=== PATIENT | male | born 1990 | race Caucasian/White ===

== ENCOUNTER 2023-09-28 12:26 | Emergency (ER) | payer OTHER, SELFPAY ==
[~2023-09-28] VITALS: Ht 175.3 cm; Wt 80.6 kg
[2023-09-28] MEDS ORDERED: IBUP-1022 PO (15:31)
[2023-09-28] MEDS: IBUPROFEN 600MG TAB PO ONE (15:34)
[2023-09-28 15:50] VITALS: BP 137/83; TEMP 98.2; O2SAT 98
== END 2023-09-28 15:59 | disposition home or self-care (01) ==
LOC: M ED 12:26
DX: S93.402A Sprain of unspecified ligament of left ankle, initial encounter (principal); W01.0XXA Fall on same level from slipping, tripping and stumbling without subsequent striking against object, initial encounter; Y92.009 Unspecified place in unspecified non-institutional (private) residence as the place of occurrence of the external cause; Y93.89 Activity, other specified; Y99.8 Other external cause status; Z88.8 Allergy status to other drugs, medicaments and biological substances